=== PATIENT | female | born 2005 | race Caucasian/White ===

== ENCOUNTER 2024-10-04 07:53 | Emergency (ER) | payer BC ==
[~2024-10-04] VITALS: Ht 180.3 cm; Wt 60.9 kg
[2024-10-04 08:00] VITALS: PULSE 96; RESP 18; TEMP 98.6; O2SAT 97
[2024-10-04] MEDS ORDERED: CEFDINIR300 MG PO (08:22)
[2024-10-04] MEDS ORDERED: DOXYCYCLINE HY100 MG PO (08:22)
[2024-10-04] MEDS ORDERED: PROBIOTIC & AC1 EACH PO (08:22)
[2024-10-04] MEDS ORDERED: IBUPROFEN600 MG PO (08:22)
[2024-10-04] MEDS ORDERED: LIDOCAINE HCL 1% 30ML-PF VIAL ONE (08:25)
[2024-10-04] MEDS: ONDANSETRON HCL 4 MG ORAL DISINTEGRATING TAB PO ONE (08:31)
[2024-10-04] MEDS: IBUPROFEN 600 MG TAB PO ONE (08:32)
[2024-10-04] MEDS: ACETAMINOPHEN 325 MG TAB PO ONE (08:32)
[2024-10-04] MEDS: CEFTRIAXONE 1 GM VIAL IM ONE (08:33)
[2024-10-04] MEDS ORDERED: ONDANSETRON ODT4 MG PO (09:37)
== END 2024-10-04 09:40 | disposition home or self-care (01) ==
LOC: FSED 07:58
DX: R30.0 Dysuria (principal); N39.0 Urinary tract infection, site not specified
CPT/HCPCS: 74176; 81003; 81025; 99284; J0696; J2003; Q0162